=== PATIENT | male | born 1985 | race Caucasian/White ===

== ENCOUNTER 2019-05-21 21:27 | Emergency (ER) | payer SELFPAY ==
[2019-05-21] MEDS ORDERED: Clindamycin HCl 150 MG Cap PO ONE (21:28)
[2019-05-21] MEDS ORDERED: Acetaminophen/HYDROcodone 325-5 MG Tab PO ONE (21:28)
[2019-05-21] MEDS ORDERED: Take Home: Acetaminophen/HYDROcodone 325-5 MG, 2 Tab Pack PO ONE (21:44)
[2019-05-21] MEDS ORDERED: Take Home: Clindamycin HCl 150 MG Cap, 6 Cap Pack PO ONE (21:44)
--- NOTE | 2019-05-21 21:51 | EDM.PDOC ---
ED HPI GENERAL MEDICAL PROBLEM - General Chief Complaint: General Stated Complaint: "HAVE A TOOTH ABSCESS" Time Seen by Provider: 05/21/19 21:35 Source of Information: Reports: Patient History Limitations: Reports: No Limitations - History of Present Illness INITIAL COMMENTS - FREE TEXT/NARRATIVE: This patient is a 34 year old male that presents to the ER for right upper dental pain. Patient reports started about 4 days ago with swelling. Patient reports had the same about 7 months ago with same tooth. Patient denies n, v, d , f. Onset Date: 05/17/19 Duration: Day(s): (4) Location: Reports: Face Quality: Reports: Ache Severity: Mild Improves with: Reports: None Worsens with: Reports: None Associated Symptoms: Reports: No Other Symptoms. Denies: Confusion, Chest Pain , Cough, cough w sputum, Fever/Chills, Headaches, Loss of Appetite, Malaise, Nausea/Vomiting, Rash, Seizure, Shortness of Breath, Syncope, Weakness - Related Data Allergies Allergy/AdvReac Type Severity Reaction Status Date / Time No Known Allergies Allergy Verified 05/21/19 21:37 Home Meds: Home Meds . [No Known Home Meds] 05/21/19 [History] ED ROS GENERAL - Review of Systems Review Of Systems: See Below Constitutional: Reports: No Symptoms HEENT: Reports: Dental Pain, Other (facial swelling) Respiratory: Reports: No Symptoms Cardiovascular: Reports: No Symptoms Endocrine: Reports: No Symptoms GI/Abdominal: Reports: No Symptoms : Reports: No Symptoms Musculoskeletal: Reports: No Symptoms Skin: Reports: No Symptoms Neurological: Reports: No Symptoms Psychiatric: Reports: No Symptoms Hematologic/Lymphatic: Reports: No Symptoms Immunologic: Reports: No Symptoms ED EXAM, GENERAL - Physical Exam Exam: See Below Exam Limited By: No Limitations General Appearance: Alert, WD/WN, No Apparent Distress Eye Exam: Bilateral Eye: EOMI, Normal Inspection, PERRL Ears: Normal External Exam, Normal Canal, Hearing Grossly Normal, Normal TMs Ear Exam: Bilateral Ear: Auricle Normal, Canal Normal, TM normal Nose: Normal Inspection, Normal Mucosa, No Blood Throat/Mouth: Normal Inspection, Normal Lips, Normal Gums, Normal Oropharynx, Normal Voice, No Airway Compromise, Other (right upper front swelling dental abscess, fx of tooth. No trismus. Airway intact. No facial cellulitis. ) Head: Atraumatic, Normocephalic Neck: Normal Inspection, Supple, Non-Tender, Full Range of Motion. No: Limited Range of Motion, Lymphadenopathy (L), Lymphadenopathy (R), Tender Lateral, Tender Midline Respiratory/Chest: No Respiratory Distress, Lungs Clear, Normal Breath Sounds, No Accessory Muscle Use Cardiovascular: Normal Peripheral Pulses, Regular Rate, Rhythm, No Edema, No Gallop, No JVD, No Murmur, No Rub Peripheral Pulses: 2+: Radial (L), Radial (R) Back Exam: Normal Inspection Extremities: Normal Inspection, Normal Range of Motion, Non-Tender, No Pedal Edema, Normal Capillary Refill Neurological: Alert, Oriented Psychiatric: Normal Affect, Normal Mood Skin Exam: Warm, Dry, Intact, Normal Color, No Rash Lymphatic: No Adenopathy Course - Orders/Labs/Meds Meds: Medications Discontinued Medications Generic Name Dose Route Start Last Admin Trade Name Freq PRN Reason Stop Dose Admin Hydrocodone Bitart/Acetaminophen 2 packet 05/21/19 21:44 Take Home: Acetaminophen/Hydrocod, 2 Tab Pack PO 05/21/19 21:45 ONETIME ONE Clindamycin HCl 1 packet 05/21/19 21:44 Take Home: Clindamycin Hcl 150 Mg, 6 Cap Pack PO 05/21/19 21:45 ONETIME ONE Departure - Departure Time of Disposition: 21:49 Disposition: Home, Self-Care 01 Condition: Good Clinical Impression: Abscess, dental - Discharge Information *PRESCRIPTION DRUG MONITORING PROGRAM REVIEWED*: No *COPY OF PRESCRIPTION DRUG MONITORING REPORT IN PATIENT JESÚS: No Instructions: Dental Abscess Forms: ED Department Discharge Additional Instructions: Followup with dentist Followup with primary care provider if needed Return to the ER for worsening of condition or any emergent concerns such as vomiting, fever, or concerns Ice to the area Salt water rinses Clindamycin 300mg 1 pill four times a day for 7 days. Take home of 150mg 2 pills every 6 hours [place] 5/325mg 1-2 pills every 4-6 hours as needed for pain #12 no refill - Assessment/Plan Plan: Please see RN note for pfsh.
== END 2019-05-21 22:00 | disposition home or self-care (01) ==
LOC: CC.ED 21:27
DX: K04.7 Periapical abscess without sinus (principal)
CPT/HCPCS: 99282; A9270